=== PATIENT | male | born 1985 | race Caucasian/White ===

== ENCOUNTER 2018-10-14 05:46 | Emergency (ER) | payer BC ==
[~2018-10-14] VITALS: Ht 170.2 cm; Wt 84.0 kg
[2018-10-14 05:51] VITALS: BP 115/81
[2018-10-14] MEDS ORDERED: VISCOUS LIDOCAINE 2% 15 ML UDC MM ONE (07:30)
== END 2018-10-14 08:40 | disposition home or self-care (01) ==
LOC: ER 05:46
DX: J02.9 Acute pharyngitis, unspecified (principal)
CPT/HCPCS: 87070; 87430; 99283